=== PATIENT | male | born 1965 | race Caucasian/White ===

== ENCOUNTER 2025-09-05 10:13 | Outpatient (AMB) | payer OTHER, SELFPAY ==
--- OUTSIDE RECORDS SUMMARY | 2025-09-04 18:39 | XMS_ITS | Encounter Summary ---
Author Organization [facility] Address [address] [place] [address] Care Team Providers Care Client Consultant Name Role Phone Harvey Zhang MD Primary Care Provider [phone] Reason for Referral * Imaging (Routine) - Pending Review Specialty Diagnoses / Procedures Referred By Contac t Referred To Contact Radiology Diagnoses Peroneal tendinitis of lower leg, right Ganglion cyst of right foot Procedures MR Ankle wo Contrast Right Pedrito Allen DPM [address] [address] Phone: tel: fax: [address] [phone] Phone: tel: Referral ID Status Reason Start Date Expiration Date V isits Requested Visits Authorized [id number] Pending Review 08/26/2025 08/26/2026 1 1 Reason for Visit * Imaging (Routine) - Pending Review Specialty Diagnoses / Procedures Referred By Contac t Referred To Contact Radiology Diagnoses Peroneal tendinitis of lower leg, right Ganglion cyst of right foot Procedures MR Ankle wo Contrast Right Pedrito Allen DPM [address] [address] Phone: tel: fax: [address] [phone] Phone: tel: Referral ID Status Reason Start Date Expiration Date V isits Requested Visits Authorized [id number] Pending Review 08/26/2025 08/26/2026 1 1 Encounter Details Date Type Department Care Team (Latest Contact Info) Description 09/04/2025 6:39 PM EDT - 09/04/2025 11:59 PM EDT Hospital Encounter MRI [address] [place] [id number] Peroneal tendinitis of lower leg, right; Ganglion cyst of right foot Discharge Disposition: Home or Self Care Social History Tobacco Use Types Packs/Day Years Used Date Smoking Tobacco: Every Day Cigarettes Smokeless Tobacco: Never Alcohol Use Standard Drinks/Week Comments Yes 2 (1 standard drink = 0.6 oz pur e alcohol) Sex and Gender Information Value Date Recorded Sex Assigned at Not on file Legal Sex Male 3:25 PM EST Gender Identity Not on file Sexual Orientation Not on file documented as of this encounter Discharge Disposition Disposition Code Departure Means Destination Home or Self Care documented in this encounter Plan of Treatment Upcoming Encounters Date Type Department Care Team (Late st Contact Info) Description 09/16/2025 8:30 AM EST Office Visit Orthopedic Surgery - [place] [address] [place] [address] [place] [phone] Pedrito Allen, [address] [phone] documented as of this encounter Procedures Procedure Name Priority Date/Time Associated Diagnosis Comments MR ANKLE WO CONTRAST RIGHT Routine 09/04/2025 8:11 PM EDT Peroneal tendinitis of lower leg, right Ganglion cyst of right foot documented in this encounter Results * MR Ankle wo Contrast Right (09/04/2025 8:11 PM EDT) Anatomical Region Laterality Modality Lower Extremities, Ankle Right Magneti c Resonance 09/05/2025 4:30 AM EDT Impressions 09/05/2025 4:37 AM EDT 1. 4.2 x 1.2 x 2.5 cm fluid collection /ganglion along the lateral malleolus/fibula with surrounding subcutaneous soft tissue edema. 2. Peroneal tenosynovitis and insertional peroneal longus tendinosis without tear 3. Mild insertional posterior tibial tendinosis and mild tenosynovitis -------- FINAL REPORT -------- Dictated By: Christine Doss Dictated Date: 09/05/2025 04:30 ET Assigned Physician: Christine Doss Reviewed and Electronically Signed By: Christine Doss Signed Date: 09/05/2025 04:37 ET Workstation ID: [id number] Transcribed By: Self Edit Transcribed Date: 09/05/2025 04:30 ET Narrative 09/05/2025 4:37 AM EDT INDICATION: Fluid-filled cyst above lateral malleolus right ankle pain with history of fluid-filled abscess along the lateral aspect of the right ankle which has been previously drained. Pain overlying the peroneal tendon. COMPARISON: None TECHNIQUE: Multiplanar, multisequence MRI was performed of the right ankle without intravenous contrast. FINDINGS: Bone: No acute fracture or dislocation of the right ankle. No osteochondral lesion. Mild Dany deformity. No significant posterior plantar calcaneal spur. Tendons: Peroneal tenosynovitis and insertional peroneal longus tendinosis without tear. Anterior extensor tendons are intact. Mild insertional posterior tibial tendinosis and mild tenosynovitis. Mild Achilles tendinosis without tear. Ligaments:The deltoid ligaments, spring ligament complexes, and lateral collateral ligaments are intact. Miscellaneous:Focal T1 hypointense, T2 fat sat hyperintense fluid signal along the lateral malleolus/fibula measuring approximately 4.2 x 1.2 x 2.5 cm with surrounding subcutaneous soft tissue edema. Plantar fascia is intact. Tarsal tunnel and sinus Tarsi appear unremarkable. No muscle atrophy or fatty infiltration. Procedure Note Christine Doss MD - 09/05/2025 INDICATION: Fluid-filled cyst above lateral malleolus right ankle painwith history of fluid-filled abscess along the lateral aspect of the rightankle which has been previously drained. Pain overlying the peronealtendon. COMPARISON: None TECHNIQUE: Multiplanar, multisequence MRI was performed of the right anklewithout intravenous contrast. FINDINGS: Bone: No acute fracture or dislocation of the right ankle. Noosteochondral lesion. Mild Dany deformity. No significant posteriorplantar calcaneal spur. Tendons: Peroneal tenosynovitis and insertional peroneal longus tendinosiswithout tear. Anterior extensor tendons are intact. Mild insertionalposterior tibial tendinosis and mild tenosynovitis. Mild Achillestendinosis without tear. Ligaments:The deltoid ligaments, spring ligament complexes, and lateralcollateral ligaments are intact. Miscellaneous:Focal T1 hypointense, T2 fat sat hyperintense fluid signalalong the lateral malleolus/fibula measuring approximately 4.2 x 1.2 x 2.5cm with surrounding subcutaneous soft tissue edema. Plantar fascia isintact. Tarsal tunnel and sinus Tarsi appear unremarkable. No muscleatrophy or fatty infiltration. IMPRESSION: 1. 4.2 x 1.2 x 2.5 cm fluid collection /ganglion along the lateralmalleolus/fibula with surrounding subcutaneous soft tissue edema. 2. Peroneal tenosynovitis and insertional peroneal longus tendinosiswithout tear 3. Mild insertional posterior tibial tendinosis and mild tenosynovitis -------- FINAL REPORT -------- Dictated By: Christine Doss Dictated Date: 09/05/2025 04:30 ET Assigned Physician: Christine Doss Reviewed and Electronically Signed By: Christine Doss Signed Date: 09/05/2025 04:37 ET Workstation ID: [id number] Transcribed By: Self Edit Transcribed Date: 09/05/2025 04:30 ET Pedrito Allen DPM IMG MRI PROCEDURES Final Re sult documented in this encounter Visit Diagnoses Diagnosis Peroneal tendinitis of lower leg, right Ganglion cyst of right foot documented in this encounter Care Teams Client Consultant Relationship Specialty Start Date End Date Harvey Zhang MD [address] [place] [id number] PCP - General Internal Medicine 02/24/18 documented as of this encounter
--- NOTE | 2025-09-05 10:23 | A.OFFPC_ITS ---
Vital Signs 09/05/25 10:27 Height 5 ft 8.19 in Weight 187 lb BMI 28.3 BP 120/72 Blood Pressure Location Lt brachial Position Sitting Respiration 20 Pulse 89 Pulse Source Pulse Oximeter Temp 97.8 F Temp Source Temporal Artery Scan Pulse Oximetry (%) 96 Oxygen Delivery Method Room Air Intake Visit Reasons: New pt. est care Accompanied by: Spouse Allergies No Known Allergies Allergy (Verified 09/05/25 10:24) Medication List - Last Reconciled 09/05/25 by Agustin Gauthier MD nicotine 1 patch transdermal DAILY Tobacco use date assessed: 09/05/25 Dental Screening Dental Screen Date: 09/05/25 Did you have a dental visit in the last 12 months?: No Did you have a dental problem in the last 6 months where you did not have access to dental care?: No Was dental information given to patient?: Patient has dentist HPI HPI Comments History of Present Illness Details The patient is a 60-year-old male presenting to [facility] primary care. He has not seen a primary care provider in two years since his previous doctor's practice closed. The visit was prompted by the need for a primary doctor to coordinate care for an ankle issue. The patient reports an issue with his ankle that started after a bug bite in [place], which resulted in significant, painless swelling described as feeling like liquid inside. He was evaluated at a hospital and was subsequently seen by Dr. Andrews's office, with a suspected diagnosis of bursitis. An x-ray of the ankle was normal, and an MRI was performed last night at [facility], with a follow-up appointment scheduled for September 17 for possible surgical intervention. Past surgical history includes a hernia repair and a hiatal hernia repair for severe heartburn, which has since left him unable to burp. He also reports a history of a broken leg. He denies any history of high blood pressure or high cholesterol. The patient has a 49-ftpx-mwmm history of smoking, currently smoking at least on e pack per day. He has been on Spiriva mist inhaler, two puffs daily, for his breathing, which he finds effective, but has run out of the medication. He recalls undergoing lung function testing approximately 15 years ago. He reports drinking alcohol about twice a week, consuming approximately six drinks per session. He also reports using marijuana since age 13 and has no intention of quitting. He denies any use of heroin or cocaine. There is no family history of heart disease, cancer, or diabetes. The patient denies any known allergies. Medical History: - Ankle bursitis, recent onset - Gastroesophageal reflux disease, statu s post hiatal hernia repair - Chronic Obstructive Pulmonary Disease, suspected - Tobacco Use Disorder, 21-gpyp-ooqs his tory - Alcohol Abuse - Cannabis Use Disorder - History of leg fracture Surgical History: - Hernia repair, remote - Hiatal hernia repair for heartburn, re mote Medications: - Spiriva mist inhaler, two puffs once a day, for breathing. - Patient notes he is currently out of t his medication. Family History: - Denies family history of heart disease , cancers, or diabetes. Diagnostic Results: - Ankle X-ray: Normal - Ankle MRI: Performed yesterday, result s pending Social History: - Tobacco Use: Smokes at least one pack of cigarettes per day for approximately 40 years, equating to a 50-vsig-jbja history. - Alcohol Use: Consumes approximately si x alcoholic beverages per session, about twice a week. - Substance Use: Smokes marijuana regula rly since age 13. - Denies use of heroin or cocaine. - Mood: Reports being in a good mood and happy in general, though feels tired on gloomy days. - Denies depression or anxiety. [facility] Medical History (Updated 09/05/25 @ 10:48 by Agustin Gauthier MD) Cannabis use disorder Alcohol use disorder Bursitis of ankle Shortness of breath Tobacco use disorder Social History Housing: House Patient Tobacco Use Status: Current everyday Tobacco user Cigarette Packs Per Day: 1 Years Smoked: 40 years e-Cigarette/Vaping Use: Never Used Second Hand Smoke Exposure: Yes service: No Current occupational status: employed Current occupation: stage electrician Questionnaire PHQ-9 Over the last 2 weeks, how often have you been bothered by any of the following problems? 1. Little interest or pleasure in doing things: not at all 2. Feeling down, depressed, or hopeless: not at all 3. Trouble falling or staying asleep, or sleeping too much: not at all 4. Feeling tired or having little energy: not at all 5. Poor appetite or overeating: not at all 6. Feeling bad about yourself - or that you are a failure or have let yourself or your family down: not at all 7. Trouble concentrating on things, such as reading the newspaper or watching television: not at all 8. Moving or speaking so slowly that other people could have noticed. Or the opposite - being so fidgety or restless that you have been moving around a lot more than usual: not at all 9. Thoughts that you would be better off or of hurting yourself in some way: not at all Total score: 0 Depression Screening Interpretation: Negative Depression Screening Done: Yes 53641 - PHQ-9 Billing: Yes Source: Developed by Drs. Alan Valadez, Sharlene Adames, Andrzej Fung and colleagues, with an educational ayesha from [employer]. Thrive Questionnaire I am a: Patient What is your living situation today?: I have a steady place to live Within the past 12 months, did the food you bought not last and you didn't have the money to get more?: Never true Within the past 12 months, did you worry whether your food would run out before you got money to buy more?: Never true Do you have trouble paying for medicines?: No Do you have trouble getting transportation to medical appointments?: No Do you have trouble paying your heating and electricity bill?: No Do you have trouble taking care of your child, family member or friend?: No Do you have trouble with day-to-day activities such as bathing, preparing meals, shopping, managing finances, etc.?: No Are you currently unemployed and looking for a job?: No Are you interested in more education?: No THRIVE Score: 0 AUDIT C Alcohol Use Questionnaire (AUDIT-C) 1. How often do you have a drink containing alcohol?: 2-3 times a week 2. How many drinks containing alcohol do you have on a typical day when you are drinking?: 5 or 6 3. How often do you have six or more drinks on one occasion?: Weekly Total Score: 8 Score Reviewed/Action Taken: Yes FAHEEM-7 AMB Questionnaire FAHEEM-7 Date FAHEEM - 7 assessed: 09/05/25 Feeling nervous, anxious, or on edge: 0 = Not at all Not being able to stop or control worryin = Not at all Worrying too much about different things: 0 = Not at all Trouble relaxin = Not at all Being so restless that it is hard to sit still: 0 = Not at all Becoming easily annoyed or irritable: 0 = Not at all Feeling afraid as if something awful might happen: 0 = Not at all Total FAHEEM-7 score (0-4 normal; 5-9 mild; 10-14 moderate; 15-21 severe): 0 Source: Developed by Drs. Alan Valadez, Sharlene Adames, Andrzej Fung and colleagues, with an educational ayesha from [employer]. FAHEEM-7 Assessment Billing FAHEEM-7 Assessment Tool: FAHEEM-7 Assessment 03828 Review of Systems Narrative - Constitutional: Reports feeling tired today. - Musculoskeletal: Reports painless swelling of the ankle. - Respiratory: Reports a cough that is not more than normal and notes easier breathing with Spiriva use. - Denies shortness of breath. - Cardiovascular: Denies chest pain. - Gastrointestinal: Reports having a strong gag reflex. - Denies nausea, vomiting, abdominal pain, diarrhea, or constipation. - Neurological: Denies headaches. - Eyes: Denies vision changes. - All other systems reviewed and are negative. All systems reviewed & are unremarkable except as reviewed in HPI and above Physical exam (Primary Care) Vital Signs: Last Vital Signs Temp 97.8 F 09/05/25 10:27 Pulse 89 09/05/25 10:27 Resp 20 09/05/25 10:27 BP 120/72 09/05/25 10:27 Pulse Ox 96 09/05/25 10:27 Oxygen Delivery Method Room Air 09/05/25 10:27 BMI result Body Mass Index 28.3 Tobacco/Smoking Status: Tobacco use Status Tobacco use date assessed 09/05/25 09/05/25 10:29 Patient Tobacco Use Status Current everyday Tobacco 09/05/25 10:29 e-Cigarette/Vaping Use Never Used 09/05/25 10:29 Are you ready to quit: Yes Tobacco cessation counseling provided: Yes Relapse Prevention: discussed the importance of a supportive environment, discussed extending NRT, discussed negative mood or depression after quitting, weight gain after smoking is common and discussed dietary, exercise and/or lifestyle changes Number of minutes spent counselin CPT code: 97087 - 4-10 Minutes Depression Screening Interpretation: Negative Narrative General: +Alert and oriented, Well nourished, No acute distress. Eye: Pupils are equal, round and reactive to light, Intact accommodation, Extraocular movements are intact, Normal conjunctiva, Vision unchanged. HENT: Normocephalic, Atraumatic, Tympanic membranes are clear, Normal hearing, Oral mucosa is moist, No pharyngeal erythema, Ear canals patent. Respiratory: Lungs CTA bilaterally, No wheeze, Respirations are non-labored. Cardiovascular: Regular rate, Regular rhythm, S1 auscultated, S2 auscultated, No murmur, Good pulses equal in all extremities, Normal peripheral perfusion, No edema. Gastrointestinal: Soft, Non-tender, Non-distended, Normal bowel sounds, No organomegaly. Musculoskeletal: Normal range of motion, Normal strength, No tenderness, No swelling, No deformity, Normal gait. Integumentary: Warm, Dry, [place], Intact. Neurologic: Alert, Oriented, Normal sensory, Normal motor function, No focal defects, Cranial Nerves II-XII are grossly intact, Normal deep tendon reflexes. Psychiatric: Cooperative, Appropriate mood & affect, Normal judgment. Coding Level of Care Code New Pt Prev Care 40-64y(98763) Diagnoses Tobacco use disorder F17.200 Shortness of breath R06.02 Bursitis of right ankle M77.51 Laterality: right Alcohol use disorder F10.90 Cannabis use disorder F12.90 Additional Codes PHQ-9 - 13871 - PHQ-9 Billing: Yes ([id number]) FAHEEM-7 Assessment Billing - FAHEEM-7 Assessment Tool: FAHEEM-7 Assessment 39179 ([id number]) Vital Signs *Quality* - CPT code: 85483 - 4-10 Minutes ([id number]) Assessment & Plan Assessment & Plan (1) Tobacco use disorder: Comment: - The patient has a 91-cmta-bagk history of smoking. - He was counseled on the urgent need for cessation. - A prescription for nicotine patches will be sent to his pharmacy to aid in quitting. - Lung Cancer Screening referral sent Code(s): F17.200 - Nicotine dependence, unspecified, uncomplicated Category: Medical (2) Shortness of breath: Comment: - Due to his extensive smoking history, the patient is at high risk for COPD/Emphysema - He will be referred for pulmonary function tests to evaluate for COPD. - His prescription for Spiriva mist inhaler will be renewed and sent to the [facility] pharmacy. Code(s): R06.02 - Shortness of breath Category: Medical (3) Bursitis of ankle: Comment: - The patient is under the care of a specialist for this issue. - He has a follow-up scheduled with Dr. Andrews's office on September 17. - No new interventions are planned from this visit; will await specialist evaluation and MRI results. Possible intervention Code(s): M77.50 - Other enthesopathy of unspecified foot and ankle Category: Medical Qualifiers: Laterality: right Qualified Code(s): M77.51 - Other enthesopathy of right foot and ankle (4) Alcohol use disorder: Comment: - The patient reports consuming a significant amount of alcohol (six drinks, twice weekly). - He was counseled on the risks associated with this level of intake. Code(s): F10.90 - Alcohol use, unspecified, uncomplicated Category: Medical (5) Cannabis use disorder: Comment: - The patient reports long-term daily marijuana use and is not willing to quit. - He was advised that smoking of any substance is detrimental to lung health. Code(s): F12.90 - Cannabis use, unspecified, uncomplicated Category: Medical Plan: Health Maintenance: - Smoking Cessation: Counseled on the urgent need to quit. - Prescribed nicotine patches. - Lung Cancer Screening: Referral placed for low-dose CT of the chest due to age and extensive smoking history. - Colorectal Cancer Screening: Will order Cologuard test as the patient declined colonoscopy. - Alcohol Use: Counseled on reducing significant alcohol intake. - Lab Screening: Ordered baseline labs including CBC, electrolytes, glucose, cholesterol, thyroid, vitamin D, and screening for syphilis, hepatitis, and HIV. Patient was informed and verbally consented to the use of an ambient scribe for clinic note documentation during this visit. Plan I introduced myself and discussed the importance of establishing regular primary care. I strongly advised the patient to quit smoking, highlighting his 40-pack- year history and the significant risks, including lung cancer. I explained the rationale for lung cancer screening with a low-dose CT scan, addressing his hesitation by emphasizing the benefit of early detection and intervention. To support his cessation efforts, I prescribed nicotine patches. We discussed colorectal cancer screening. The patient refused a colonoscopy due to a severe gag reflex and inability to tolerate the prep, so we agreed to proceed with a Cologuard test instead. I addressed his alcohol consumption, noting that six drinks per session twice a week is significant and concerning. I also acknowledged his decision not to quit marijuana but reiterated that any form of smoking is harmful to the lungs. I outlined the plan for baseline assessments, which includes comprehensive blood work and a referral for pulmonary function tests to evaluate for COPD. I refilled his Spiriva inhaler. We will follow up in three months to review all results and discuss next steps. Orders: Orders Complete Blood Count Auto Diff Today F17.200 - Nicotine dependence, unspecified , uncomplicated, Z00.00 - Encounter for general adult medical examination without abnormal findings Comprehensive Met. Panel Today F17.200 - Nicotine dependence, unspecified, uncomplicated, Z00.00 - Encounter for general adult medical examination without abnormal findings Hepatitis A,B,C Profile Today F17.200 - Nicotine dependence, unspecified, uncomplicated, Z00.00 - Encounter for general adult medical examination without abnormal findings HIV Ab/Ag Today F17.200 - Nicotine dependence, unspecified, uncomplicated, Z00.00 - Encounter for general adult medical examination without abnormal findings TSH reflex Free T4 Today F17.200 - Nicotine dependence, unspecified, uncomplicated, Z00.00 - Encounter for general adult medical examination without abnormal findings PFT pulmonary function test Today R06.02 - Shortness of breath Hemoglobin A1c Today F17.200 - Nicotine dependence, unspecified, uncomplicated, Z00.00 - Encounter for general adult medical examination without abnormal findings Lipid Panel Today F17.200 - Nicotine dependence, unspecified, uncomplicated, Z00.00 - Encounter for general adult medical examination without abnormal findings Syphilis Screen Today F17.200 - Nicotine dependence, unspecified, uncomplicated, Z00.00 - Encounter for general adult medical examination without abnormal findings Vitamin D 25-OH Total Today F17.200 - Nicotine dependence, unspecified, uncomplicated, Z00.00 - Encounter for general adult medical examination without abnormal findings Referrals Lung Cancer Screening Referral F17.200 - Nicotine dependence, unspecified, uncomplicated Cologuard Test Z12.11 - Encounter for screening for malignant neoplasm of colon Medications: New nicotine 1 patch transdermal DAILY 28 ea 3RF tiotropium bromide 2.5 mcg/actuation (Spiriva Respimat) 2 puffs inhalation DAILY 4 grams 8RF 30 days Patient Instructions: - Stop smoking cigarettes. - Nicotine patches have been prescribed to help you quit. - Go to the lab across the [place] today to have your blood drawn. - You will be contacted to schedule a lung cancer screening (a quick CT scan of your chest). - You will also be contacted to schedule a breathing test (pulmonary function test). - A Cologuard kit, which is a stool test for colon cancer screening, will be ordered for you. - A prescription for your Spiriva inhaler has been sent to the [facility] pharmacy. - We have scheduled a follow-up appointment in three months. - Keep your scheduled appointment with Dr. Andrews's office on September 17 for your ankle.
[2025-09-05 10:27] VITALS: BP 120/72; PULSE 89; RESP 20; TEMP 36.6; O2SAT 96; BMI 28.3
--- OUTSIDE RECORDS SUMMARY | 2025-09-05 12:21 | XMS_ITS | Clinical Summary ---
Author Organization [address] [facility] Address [address] [place] [address] Phone Care Team Providers Care Underwriting Account Representative Name Role Phone Harvey Zhang MD Primary Care Provider [phone] Allergies Active Allergy Reactions Criticality Noted Date Comments Morphine Sulfate 06/09/2018 Medications No known medications Encounters Date Type Department Care Team Description 09/04/2025 6:39 PM EDT - 09/04/2025 11:59 PM EDT Hospital Encounter [facility] MRI [address] [place] [phone] Peroneal tendinitis of lower leg, right; Ganglion cyst of right foot Discharge Disposition: Home or Self Care 08/26/2025 8:45 AM EDT Office Visit Orthopedic Surgery [facility] [address] [phone] Pedrito Allen, DPM Pain in right foot (Primary Dx); Peroneal tendinitis of lower leg, right; Ganglion cyst of right foot 08/08/2025 2:00 PM EDT Consult Orthopedic [facility] [address] [phone] Pedrito Allen, DPM Pain in right foot (Primary Dx); Peroneal tendinitis of lower leg, right; Ganglion cyst of right foot from Last 3 Months Surgical History Surgery Date Site/Laterality Comments OTHER SURGICAL HISTORY 2004 PROCEDURE: ND LAPS SURG ESOPG/GSTR FUNDOPLASTY Family History Medical History Relation Name Comments Brain Aneurysm Father Relation Name Status Comments Brother Father Mother Sister Alive Social History Tobacco Use Types Packs/Day Years Used Date Smoking Tobacco: Every Day Cigarettes Smokeless Tobacco: Never Alcohol Use Standard Drinks/Week Comments Yes 2 (1 standard drink = 0.6 oz pur e alcohol) Sex and Gender Information Value Date Recorded Sex Assigned at Not on file Legal Sex Male 3:25 PM EST Gender Identity Not on file Sexual Orientation Not on file Obstetrics History Last Filed Vital Signs Vital Sign Reading Time Taken Comments Blood Pressure 124/82 01/13/2022 11:24 AM EST Si tting L Arm Pulse 78 01/13/2022 11:24 AM EST Temperature - - Respiratory Rate - - Oxygen Saturation - - Inhaled Oxygen Concentration - - Weight 86.6 kg (191 lb) 01/13/2022 11:24 AM EST Height 172.7 cm (5' 8 ) 01/13/2022 11:24 AM EST Body Mass Index 29.04 01/13/2022 11:24 AM EST Plan of Treatment Upcoming Encounters Date Type Department Care Team (Late st Contact Info) Description 09/16/2025 8:30 AM EST Office Visit Orthopedic Surgery - [address] [phone] Pedrito Allen, [address] [phone] Health Maintenance Due Date Last Done Comments Colorectal Cancer Screening: Colonoscopy 1966 DTaP,Tdap,and Td Vaccines (1 - Tdap) 1985 Hepatitis B Vaccines (1 of 3 - 19+ 3-dose series) 1985 Pneumococcal Vaccine: 50+ Ye ars (1 of 2 - PCV) 1985 Zoster Vaccines (1 of 2) 01/07/2016 Depression Screening 11/07/2024 COVID-19 Vaccine ( - 2023-2 5 season) 2025 Influenza Vaccine (#1) 2025 Cholesterol Screening (Lipid Panel) 08/05/2025 HIV Screening 08/05/2025 Hepatitis C Screening 08/05/2025 Social Influencers of Health Screening 08/05/2025 RSV Immunization Adult Patie nts (1 - 1-dose 75+ series) 2041 HIB Vaccines Aged Out No longer eligi ble based on patient's age to complete this topic HPV Vaccines Aged Out No longer eligi ble based on patient's age to complete this topic Hepatitis A Vaccines Aged Out No long er eligible based on patient's age to complete this topic IPV Vaccines Aged Out No longer eligi ble based on patient's age to complete this topic MMR Vaccines Aged Out No longer eligi ble based on patient's age to complete this topic Meningococcal ACWY Vaccine Aged Out N o longer eligible based on patient's age to complete this topic Meningococcal B Vaccine Aged Out No l onger eligible based on patient's age to complete this topic RSV Immunization Patients Un florencio 20 months Aged Out No longer eligible b ased on patient's age to complete this topic Varicella Vaccines Aged Out No longer eligible based on patient's age to complete this topic Procedures Procedure Name Priority Date/Time Associated Diagnosis Comments MR ANKLE WO CONTRAST RIGHT Routine 09/04/2025 8:11 PM EDT Peroneal tendinitis of lower leg, right Ganglion cyst of right foot from Last 3 Months Results * MR Ankle wo Contrast Right [...] Signed Date: 09/05/2025 04:37 ET Workstation ID: [id number] Transcribed By: Self Edit Transcribed Date: 09/05/2025 [...] Signed Date: 09/05/2025 04:37 ET Workstation ID: [id number] Transcribed By: Self Edit Transcribed Date: 09/05/2025 04:30 ET Pedrito Allen DPM IMG MRI PROCEDURES Final Re sult from Last 3 Months Insurance [facility] [employer] Care Teams Underwriting Account Representative Relationship Specialty Start Date End Date Harvey Zhang MD [address] [place] [address] [phone] PCP - General Internal Medicine 02/24/18
--- OUTSIDE RECORDS SUMMARY | 2025-09-05 12:21 | XMS_ITS ---
Author Name [facility] Organization Unknown Encounters Encounter Type Encounter Reason Primary Diagnosis Location Date Ambulatory [facility] [place] 07/16/2025
== END 2025-09-05 10:47 | disposition home or self-care (01) ==
PROVIDERS: PCP Student in an Organized Health Care Education/Training Program; Visit Provider Student in an Organized Health Care Education/Training Program
DX: Z00.00 Encounter for general adult medical examination without abnormal findings (principal); R06.02 Shortness of breath; F17.210 Nicotine dependence, cigarettes, uncomplicated; M77.51 Other enthesopathy of right foot and ankle; F10.90 Alcohol use, unspecified, uncomplicated; F12.90 Cannabis use, unspecified, uncomplicated

== ENCOUNTER 2025-09-05 10:49 | Outpatient (REF) | payer OTHER, SELFPAY ==
[2025-09-05 11:19] LABS: MANUAL DIFF FLAG NO
[2025-09-05 11:29] LABS: Hematocrit 42.8 % (42.0-52.0); Hemoglobin 14.4 g/dl (14.0-18.0); Imm Gran Abs Auto 0.05 X10*3/uL (0.00-0.03); Imm Gran Pct Auto 0.6 % (0.0-0.4); Lymphocytes Absolute Auto 2.8 X10*3/uL (1.2-4.9); Mean Corpuscular HGB Conc 33.6 g/dl (31.0-36.0); Mean Corpuscular Hemoglobin 31.2 pg (27.0-33.0); Mean Corpuscular Volume 92.6 fL (80.0-98.0); NRBC Abs Auto 0.000 X10*3/uL (0.0-0.012); NRBC Pct Auto 0.0 /100WBC (0.0-0.2); Platelet Count 303 X10*3/uL (160-400); Red Blood Count 4.62 X10*6/uL (4.60-5.80); White Blood Count 8.4 X10*3/uL (4.8-10.8)
[2025-09-05 12:14] LABS: Alanine Aminotransferase 34 U/L (0-40); Albumin Level 4.3 g/dL (3.5-5.0); Alkaline Phosphatase 92 U/L (39-117); Anion Gap 10 (12-20); Aspartate Amino Transferase 26 U/L (5-37); Blood Urea Nitrogen 11 mg/dL (9-16); Calcium 8.8 mg/dL (8.4-10.2); Carbon Dioxide 31 mmol/L (22-29); Chloride 103 mmol/L (96-108); Cholesterol 223 mg/dL (<200); Estimated Glomerular Filt Rate > 60; HDL Cholesterol 36 mg/dL (>40); Potassium 4.2 mmol/L (3.3-5.1); Sodium 140 mmol/L (135-145); Total Protein 7.0 g/dL (6.5-8.0); Triglycerides 235 mg/dL (<150)
[2025-09-06 04:22] LABS: Syphilis Screen Nonreactive (Nonreactive)
[2025-09-06 04:30] LABS: Hepatitis A Antibody IgM 0.22 Index (0-0.79); ~Hepatitis A Antibody IgM Nonreactive (Nonreactive)
[2025-09-06 04:53] LABS: HBS Num1 0.00 mIU/mL (0-7.99); HBc Num1 0.04 S/CO (0.00-0.79); HBsAGNum1 0.39 S/CO (0.00-0.99); HIV Num 1 0.06 S/CO (0.00-0.99); Hepatitis B Surface Antigen Negative (Negative); ~HepC Num1 0.13 S/CO (0.00-0.79); ~Hepatitis B Surface Antibody NONREACTIVE (Nonreactive); ~Hepatitis C Antibody Nonreactive (Nonreactive)
== END 2025-09-05 10:50 | disposition home or self-care (01) ==
LOC: HO.10HDL 10:49
PROVIDERS: Visit Provider Student in an Organized Health Care Education/Training Program
DX: Z00.00 Encounter for general adult medical examination without abnormal findings (principal); M77.51 Other enthesopathy of right foot and ankle; F17.210 Nicotine dependence, cigarettes, uncomplicated; R06.02 Shortness of breath; F10.90 Alcohol use, unspecified, uncomplicated; F12.90 Cannabis use, unspecified, uncomplicated
CPT/HCPCS: 36415; 80053; 80061; 82306; 83036; 84443; 85025; 86704; 86706; 86709; 86780; 86803; 87340; 87389; 96127; 99386